=== PATIENT | male | born 1995 | race Hispanic/Latino ===

== ENCOUNTER 2022-11-07 01:40 | Emergency (ER) | payer SELFPAY ==
[2022-11-07] MEDS ORDERED: Ondansetron PF 4 MG/2 ML Vial ONE (01:59)
[2022-11-07 02:21] LABS: #Basophils 0.1 thou/uL (0.0-0.2); #Eosinphils 0.2 thou/uL (0.0-0.7); #Monocytes 1.3 thou/uL (0.11-0.59); #Neutrophils 12.4 thou/uL (1.40-6.50); %Basophils 0.3 % (0.0-1.0); %Eosinophils 0.8 % (0.0-10.0); %Lymphocytes 24.1 % (21.0-51.0); %Monocytes 7.3 % (0.0-10.0); %Neutrophils 67.1 % (42.0-75.0); Hematocrit 48.7 % (42.0-52.0); Hemoglobin 16.9 g/dL (14.0-18.0); Mean Corpuscular HGB CONC 34.7 g/dL (32.0-36.0); Mean Corpuscular Hemoglobin 30.7 pg (27.0-31.0); Mean Corpuscular Volume 88.5 fl (78.0-98.0); Mean Platelet Volume 10.6 fL (7.4-10.4); Platelet Count 233 10x3/uL (130-400); RBC Distribution Width 12.5 % (11.5-14.5); White Blood Cell (WBC) Count 18.4 10x3/uL (4.8-10.8)
[2022-11-07 02:47] LABS: ALT (SGPT) 120 U/L (8-55); AST (SGOT) 49 U/L (5-34); Albumin 4.8 g/dL (3.5-5.0); Alkaline Phosphatase 102 U/L (40-110); Anion Gap 16 mmol/L (10-20); BUN (Urea Nitrogen) 11 mg/dL (8.9-20.6); Bilirubin, Total 0.6 mg/dL (0.2-1.2); Calc. Creatinine Clearance 0 mL/min (70-130); Calcium 9.9 mg/dL (7.8-10.44); Carbon Dioxide 23 mmol/L (22-29); Chloride 103 mmol/L (98-107); Estimated GFR 95; Globulin 3.3 g/dL (2.4-3.5); Glucose 108 mg/dL (70-105); Lipase 18 U/L (8-78); Potassium 4.2 mmol/L (3.5-5.1); Protein, Total 8.1 g/dL (6.0-8.3); Sodium 138 mmol/L (136-145)
[2022-11-07] MEDS ORDERED: Famotidine 20 MG TAB ONE (02:48)
[2022-11-07 03:20] LABS: Bacteria/HPF None Seen HPF (None Seen); Bilirubin Negative (Negative); Blood, Urine Negative (Negative); CAUTI Indications for Culture Pelvic or flank pain; Clarity Clear (Clear); Glucose, Urine (Dipstick) Normal (Negative); Ketone, Urine Negative (Negative); Leukocyte Negative Leu/uL (Negative); Nitrite Negative (Negative); Protein, Urine (Dipstick) Negative (Neg-Trace); RBC/HPF 0-3 HPF (0-3); Specific Gravity, Urine 1.016 (1.002-1.036); Squamous Epithelial None Seen HPF (0-3); Urobilinogen Normal mg/dL (Less than 2); WBC/HPF 0-3 HPF (0-3); pH, Urine 5.5 (5.0-9.0)
[2022-11-07 03:26] LABS: Urine Culture Reflex No No
[2022-11-07] MEDS ORDERED: Acetaminophen 500 MG TAB ONE (06:12)
== END 2022-11-07 06:46 | disposition home or self-care (01) ==
LOC: ERS 01:40
DX: R10.13 Epigastric pain (principal)
CPT/HCPCS: 71045; 76705; 80053; 81001; 83690; 85025; 93005; 96361; 96374; J2405